=== PATIENT | female | born 1985 | race Caucasian/White ===

== ENCOUNTER 2022-07-15 08:20 | Inpatient (IN) | payer OTHER ==
[2022-07-15] MEDS ORDERED: AMPICILLIN - 2 GM in SODIUM CHLORIDE 100 ML IVPB ONE (08:56)
[2022-07-15] MEDS ORDERED: OXYTOCIN 30 UNITS in 0.9% NS 30 UNIT/500 ML INFUS.BAG IVPB SCH (09:00)
[2022-07-15 09:40] VITALS: BMI 25.9
[2022-07-15] MEDS ORDERED: OXYTOCIN 30 UNITS in 0.9% NS 30 UNIT/500 ML INFUS.BAG IVPB ONE (09:54)
[2022-07-15] MEDS: ELECTROLYTE-148 SOLN 1,000 ML IV SCH ×3 (10:00→17:08)
[2022-07-15] MEDS ORDERED: SODIUM CHLORIDE 100 ML IVPB ONE ×2 (12:16→15:52)
[2022-07-15] MEDS ORDERED: AMPICILLIN SODIUM 2 GM VIAL ONE (12:16)
[2022-07-15] MEDS ORDERED: FENTANYL/BUPIVACAINE/NS/PF - PCEA - 50 ML DISP.SYRIN EP ONE ×2 (15:35→20:52)
[2022-07-15] MEDS ORDERED: AMPICILLIN SODIUM 1 GM VIAL ONE ×2 (15:52→20:38)
[2022-07-15] MEDS: AMPICILLIN - 1 GM in SODIUM CHLORIDE 100 ML IVPB SCH ×2 (16:11→20:40)
[2022-07-15] MEDS ORDERED: NALOXONE HCL 0.4 MG/ML VIAL IVPUSH PRN (17:06)
[2022-07-15] MEDS ORDERED: FENTANYL/BUPIVACAINE/NS/PF - PCEA - 50 ML DISP.SYRIN EP SCH (17:15)
[2022-07-15] MEDS ORDERED: ONDANSETRON 4 MG/2 ML VIAL IVPB ONE (19:45)
[2022-07-15] MEDS ORDERED: ONDANSETRON 4 MG/2 ML VIAL ONE (19:48)
[2022-07-15] MEDS ORDERED: LIDOCAINE HCL 1% PRESERVATIVE FREE - 30ML VIAL ONE (22:06)
[2022-07-15] MEDS ORDERED: OXYTOCIN 20 UNITS in 0.9% NS 20 UNIT/1,000 ML INFUS.BAG IV ONE (22:06)
[2022-07-16] MEDS ORDERED: oxyCODONE HCL 5 MG TABLET PO PRN (00:34)
[2022-07-16] MEDS ORDERED: BENZOCAINE 20% 57 GM BOTTLE TP PRN (00:34)
[2022-07-16] MEDS ORDERED: METHYLERGONOVINE MALEATE 0.2 MG/1 ML AMP IM PRN (00:34)
[2022-07-16] MEDS ORDERED: ACETAMINOPHEN 325 MG TABLET (FP) PO PRN (00:34)
[2022-07-16] MEDS ORDERED: BENZOCAINE 28 GM HEMORRHOIDAL OINTMENT TP PRN (00:34)
[2022-07-16] MEDS ORDERED: BISACODYL 10 MG SUPP.RECT RC PRN (00:34)
[2022-07-16] MEDS ORDERED: WITCH HAZEL 50% (TUCKS) 40 PAD/JAR PAD TP PRN (00:34)
[2022-07-16] MEDS ORDERED: OXYTOCIN 20 UNITS in 0.9% NS 20 UNIT/1,000 ML INFUS.BAG IV SCH (00:45)
[2022-07-16] MEDS: IBUPROFEN 600 MG TABLET (FP) PO PRN ×2 (01:00→19:16)
[2022-07-16] MEDS: AMPICILLIN - 1 GM in SODIUM CHLORIDE 100 ML IVPB SCH (02:03)
[2022-07-16 21:26] VITALS: RESP 16; TEMP 98.1
[2022-07-17 09:04] VITALS: BP 104/62; PULSE 68
[2022-07-17 09:31] LABS: BASO % 0.3 % (0-2.0); EOS % 0.5 % (0-4.5); HEMATOCRIT 36.1 % (32.4-45.2); HEMOGLOBIN 11.7 GM/dL (10.7-15.3); MCH 28.6 pg (25.7-33.7); MCHC 32.6 g/dl (32.0-36.0); MEAN CELL VOLUME 87.9 fl (80-96); MEAN PLT VOLUME 9.5 fl (7.5-11.1); MONO % 4.4 % (3.8-10.2); NEUT % 74.8 % (42.8-82.8); PLATELET COUNT 254 10^3/uL (134-434); RBC 4.11 M/mm3 (3.60-5.2); RDW 14.7 % (11.6-15.6); WHITE BLOOD COUNT 10.2 K/mm3 (4.0-10.0)
[2022-07-17] MEDS ORDERED: SENNOSIDES/DOCUSATE COMBO (SENNA PLUS) TABLET (UD) PO PRN (22:00)
== END 2022-07-17 11:35 | disposition home or self-care (01) | DRG 560 ==
LOC: JLDR 08:20 → J3W 07-16 02:00
PROVIDERS: ADMIT Specialist; ATTEND Specialist
PROC: 10E0XZZ Delivery of Products of Conception, External Approach (ICD-10-PCS; principal; 2022-07-15)
PROC: 0W8NXZZ Division of Female Perineum, External Approach (ICD-10-PCS; 2022-07-15)
PROC: 10907ZC Drainage of Amniotic Fluid, Therapeutic from Products of Conception, Via Natural or Artificial Opening (ICD-10-PCS; 2022-07-15)
DX: O28.8 Other abnormal findings on antenatal screening of mother (principal); O41.03X0 Oligohydramnios, third trimester, not applicable or unspecified; O99.344 Other mental disorders complicating childbirth; F31.75 Bipolar disorder, in partial remission, most recent episode depressed; O99.824 Streptococcus B carrier state complicating childbirth; Z3A.38 38 weeks gestation of pregnancy; Z37.0 Single live birth
CPT/HCPCS: 36415; 59409; 85025